=== PATIENT | male | born 1980 | race Caucasian/White ===

== ENCOUNTER → 2018-03-17 09:09 | Outpatient (CLI) | payer BC, SELFPAY ==
[2018-03-17 09:21] LABS: Adenovirus,PCR Not Detected (NotDetected); Bordetella Pertussis Not Detected (NotDetected); Chlamydophila Pneumoniae, PCR Not Detected (NotDetected); Coronavirus 229E Not Detected (NotDetected); Coronavirus NL63 Not Detected (NotDetected); Coronavirus OC43 Not Detected (NotDetected); Coronovirus HKU1,PCR Not Detected (NotDetected); Human Metapneumovirus Not Detected (NotDetected); Influenza A, PCR Not Detected (NotDetected); Influenza AH1, 2009 Not Detected (NotDetected); Influenza AH1, PCR Not Detected (NotDetected); Influenza AH3,PCR Not Detected (NotDetected); Influenza B, PCR Not Detected (NotDetected); Mycoplasma Pneumoniae, PCR Not Detected (NotDetected); Parainfluenza 1, PCR Not Detected (NotDetected); Parainfluenza 2, PCR Not Detected (NotDetected); Parainfluenza 3, PCR Not Detected (NotDetected); Parainfluenza 4, PCR Not Detected (NotDetected); Respiratory Syncytial Virus Not Detected (NotDetected); Rhinovirus/Enterovirus Not Detected (NotDetected)
== END ==
PROVIDERS: PCP Physician Assistant; Visit Provider Physician Assistant
DX: R09.89 Other specified symptoms and signs involving the circulatory and respiratory systems (principal)
CPT/HCPCS: 87486; 87581; 87633; 87798

== ENCOUNTER 2024-06-15 17:23 | Emergency (ER) | payer OTHER, BC, SELFPAY ==
[2024-06-15 17:43] VITALS: BP 164/125; PULSE 69; RESP 16; TEMP 36.6; O2SAT 99; BMI 24.0
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
[2024-06-15 18:00] VITALS: BP 116/87; PULSE 72; O2SAT 98
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
[2024-06-15 18:30] LABS: Basophils % 0.4 % (0.1-2.0); Eosinophils # 0.2 K/mm3 (0.0-0.4); Eosinophils % 1.6 % (0.1-12.0); Hematocrit 46.3 % (42.0-52.0); Lymphocytes # 2.3 K/mm3 (0.7-4.5); Lymphocytes % 22.9 % (10-50); Mean Corpuscular HGB Conc 36.7 g/dL (31.8-35.4); Mean Corpuscular Hemoglobin 32.1 pg (27.0-31.2); Mean Corpuscular Volume 87.5 fl (80-94); Mean Platelet Volume 9.2 fl (7.4-10.4); Monocytes # 0.6 K/mm3 (0.1-1.0); Monocytes % 5.7 % (1.7-9.3); Neutrophils # 6.8 K/mm3 (1.8-7.8); Neutrophils % 69.1 % (37.0-80.0); Platelet Count 314 K/mm3 (142-424); Red Blood Count 5.29 M/mm3 (4.60-6.20); White Blood Count 9.8 K/mm3 (4.8-10.8)
[2024-06-15 18:36] LABS: Albumin Level 4.6 g/dl (3.5-5.0); Chloride 105 mmol/L (98-107); Potassium 3.8 mmoL/L (3.5-5.1); Sodium 140 mmol/L (136-145)
[2024-06-15 18:39] LABS: Alanine Aminotransferase 24 U/L (12-78); Albumin/Globulin Ratio 1.8 (1.1-1.8); Alkaline Phosphatase 83 U/L (38-126); Anion Gap 12.8 mEq/L (5-15); Aspartate Amino Transferase 29 U/L (17-59); Bilirubin,Total 1.2 mg/dl (0.2-1.3); Blood Urea Nitrogen 18 mg/dl (9-20); Carbon Dioxide 26 mmol/L (22.0-30.0); Creatine Kinase 127 U/L (55-170); Creatinine Clearance Estimated 87 mL/min (50-200); Estimated Glomerular Filt Rate 73 ml/min (>60); GFR (African American) 88 ML/MIN (>60); Globulin 2.5 g/dL (1.3-3.2); Total Protein,Serum 7.1 g/dl (6.3-8.2)
[2024-06-15 18:40] LABS: Calcium 8.9 mg/dl (8.4-10.2); Glucose 96 mg/dl (74-100)
[2024-06-15] MEDS: METHOCARBAMOL 500MG TABLET 500 MG PO (18:41)
[2024-06-15] MEDS: ACETAMINOPHEN 500MG TAB 1000 MG PO (18:41)
--- NOTE | 2024-06-15 19:18 | PC.NURSE ---
rounded on pt at this time. pt voices no needs. states he feels better since receiving meds. call light in reach.
[2024-06-15 19:19] VITALS: BP 114/89; PULSE 66; O2SAT 97
[2024-06-15 19:30] VITALS: BP 125/86; PULSE 73; O2SAT 98
[2024-06-15] MEDS: IOPAMIDOL-370 (76%);100ML BOTTLE 160 ML IV (19:43)
[2024-06-15] MEDS: SODIUM CHLORIDE 0.9% 10ML SYR (RAD ONLY) 10 ML IV (19:43)
[2024-06-15] MEDS: 0.9 % SODIUM CHLORIDE 50 ML VIAL 100 ML IV (19:43)
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
--- NOTE | 2024-06-15 20:07 | PC.NURSE ---
pt back in room from CT
--- NOTE | 2024-06-15 20:54 | PC.NURSE ---
rounded on pt at this time. pt laying in bed. pt voices no needs. updated on POC. call light in reach
[2024-06-15 20:55] VITALS: BP 104/66; PULSE 55; O2SAT 97
[2024-06-15 21:14] VITALS: BP 119/89; PULSE 66; RESP 18; TEMP 36.8; O2SAT 96
== END 2024-06-15 21:22 | disposition home or self-care (01) ==
PROVIDERS: Physician Assistant; Emergency Provider Emergency Medicine; PCP Physician Assistant
DX: J98.4 Other disorders of lung (principal); M79.18 Myalgia, other site; M25.511 Pain in right shoulder; M25.512 Pain in left shoulder; M54.9 Dorsalgia, unspecified; V89.2XXA Person injured in unspecified motor-vehicle accident, traffic, initial encounter; Y93.89 Activity, other specified; Y92.9 Unspecified place or not applicable
CPT/HCPCS: 70450; 70496; 70498; 71275; 72125; 72128; 72131; 72192; 73562; 74174; 80053; 82550; 85025; 99285; Q9967